=== PATIENT | female | born 1990 | race Caucasian/White ===

== ENCOUNTER 2016-08-31 06:35 | Emergency (ER) | payer SELFPAY ==
[2016-08-31 08:27] LABS: Hematocrit 41 % (35-47); Hemoglobin 14.4 g/dl (12.0-16.0); Mean Corpuscular HGB Conc 35 g/dl (31-36); Mean Corpuscular Hemoglobin 32 pg (27-31); Mean Corpuscular Volume 91 fL (80-97); Mean Platelet Volume 9 um3 (7.4-10.4); Red Blood Count 4.47 10^6/ul (4.0-5.4); Red Cell Distribution Width 12 % (10.5-15)
[2016-08-31 08:36] LABS: ALT 26 U/L (7-52); AST 28 U/L (13-39); Albumin 4.6 g/dL (3.2-5.2); Alkaline Phosphatase 71 U/L (34-104); Anion Gap 5 mmol/L (2-11); BUN/Creatinine Ratio 25.5 (8-20); Blood Urea Nitrogen 13 mg/dL (6-24); C Reactive Protein 2.11 mg/L (< 5.00); CO2 Carbon Dioxide 24 mmol/L (22-32); Calcium 9.6 mg/dL (8.6-10.3); Chloride 107 mmol/L (101-111); EGFR African American 184.7 (>60); EGFR Non-African American 143.6 (>60); Globulin 2.6 g/dL (2-4); Glucose 100 mg/dL (70-100); Potassium 3.4 mmol/L (3.5-5.0); Sodium 136 mmol/L (133-145); Total Protein 7.2 g/dL (6.4-8.9)
[2016-08-31 09:13] LABS: TSH (Thyroid Stimulating Horm) 5.92 mcIU/mL (0.34-5.60)
[2016-08-31 10:19] VITALS: BP 119/80
--- NOTE | 2016-08-31 10:24 | ED ---
Izzy Villalobos Thomas, scribed for Scotty Ochoa MD on 08/31/16 at 0717 . Complex/Multi-Sys Presentation - HPI Summary HPI Summary: Pt is a 26 y/o F presenting to the ED c/o SOB that began an hour ago (06:15). Her SOB lasted 20 minutes but has since resolved. Additionally c/o "R arm shaking", R arm parasthesias, R arm weakness, near syncope, decreased hearing, and "trouble moving face". Her Sx emerged suddenly and they have since improved. She notes that she occasionally has a "wave of not feeling good", but the severity of this is less than onset of Sx. Denies rashes, nausea, pedal edema. She recently flew from [place]. She is on levothyroxin. - History Of Current Complaint Chief Complaint: EDWeakness Time Seen by Provider: 08/31/16 07:13 Hx Obtained From: Patient Onset/Duration: Sudden Onset - this AM, Resolved Severity Currently: None Associated Signs And Symptoms: Positive: Syncope - near, SOB - resolved, Other - POS: parasthesias, "R arm shaking", R arm weakness, decreased hearing, "trouble moving face. NEG: rash. Negative: Edema - pedal, Nausea - Allergies/Home Medications Allergies/Adverse Reactions: Allergies Allergy/AdvReac Type Severity Reaction Status Date / Time No Known Allergies Allergy Verified 08/31/16 07:07 Home Medications: Home Medications Levothyroxine TAB* [Synthroid TAB*] 125 mcg PO 0800 08/31/16 [History Confirmed 08/31/16] PMH/Surg Hx/FS Hx/Imm Hx Previously Healthy: No Endocrine/Hematology History: Reports: Hx Thyroid Disease - hypothyroidism Infectious Disease History: No Infectious Disease History: Denies: Traveled Outside the [place] in Last 30 Days - Social History Alcohol Use: Weekly Substance Use Type: Reports: None Smoking Status (MU): Never Smoked Tobacco Review of Systems Constitutional: Negative Eyes: Negative ENT: Other - POS: "decreased hearing" Cardiovascular: Negative Positive: Shortness Of Breath - lasted 20 minutes, resolved Gastrointestinal: Negative Negative: Nausea Genitourinary: Negative Musculoskeletal: Negative Negative: Edema Skin: Negative Negative: Rash Neurological: Other - POS: "right arm shaking"; R arm weakness; "trouble moving face" Positive: Paresthesia - R arm, Syncope - near Psychological: Normal All Other Systems Reviewed And Are Negative: Yes Physical Exam Triage Information Reviewed: Yes Vital Signs On Initial Exam: Initial Vitals Temp Pulse Resp BP Pulse Ox 98.0 F 81 16 148/92 100 08/31/16 06:45 08/31/16 06:45 08/31/16 06:45 08/31/16 06:45 08/31/16 06:45 Vital Signs Reviewed: Yes Appearance: Positive: Well-Appearing, No Pain Distress Skin: Positive: Warm, Skin Color Reflects Adequate Perfusion, Dry, Other - POS: scratch on R leg and a small red area on R heel Head/Face: Positive: Normal Head/Face Inspection Eyes: Positive: Normal ENT: Positive: Normal ENT inspection Neck: Positive: Supple, Nontender Respiratory/Lung Sounds: Positive: Clear to Auscultation, Breath Sounds Present , Decreased Breath Sounds - lungs a little diminished on R side Cardiovascular: Positive: RRR Abdomen Description: Positive: Nontender, Soft Bowel Sounds: Positive: Present Musculoskeletal: Positive: Normal Neurological: Positive: Normal, Sensory/Motor Intact, Alert, Oriented to Person Place, Time, CN Intact II-III Psychiatric: Positive: Normal, Affect/Mood Appropriate - Terry Coma Scale Coma Scale Total: 15 Diagnostics - Vital Signs Vital Signs Temp Pulse Resp BP Pulse Ox 08/31/16 07:00 71 140/87 99 08/31/16 06:58 70 99 08/31/16 06:56 137/89 08/31/16 06:45 98.0 F 81 16 148/92 100 - Laboratory Lab Results: Lab Results 08/31/16 08/31/16 08/31/16 Range/Units 08:11 08:11 08:11 WBC 7.0 (3.5-10.8) 10^3/ul RBC 4.47 (4.0-5.4) 10^6/ul Hgb 14.4 (12.0-16.0) g/dl Hct 41 (35-47) % MCV 91 (80-97) fL MCH 32 H (27-31) pg MCHC 35 (31-36) g/dl RDW 12 (10.5-15) % Plt Count 248 (150-450) 10^3/ul MPV 9 (7.4-10.4) um3 Neut % (Auto) 57.5 (38-83) % Lymph % (Auto) 29.1 (25-47) % [place] % (Auto) 10.6 H (1-9) % Eos % (Auto) 2.1 (0-6) % Baso % (Auto) 0.7 (0-2) % Absolute Neuts (auto) 4.0 (1.5-7.7) 10^3/ul Absolute Lymphs (auto) 2.0 (1.0-4.8) 10^3/ul Absolute Monos (auto) 0.7 (0-0.8) 10^3/ul Absolute Eos (auto) 0.1 (0-0.6) 10^3/ul Absolute Basos (auto) 0.1 (0-0.2) 10^3/ul Absolute Nucleated RBC 0 10^3/ul Nucleated RBC % 0.1 D-Dimer, Quantitative < 200 (Less Than 230) ng/mL Sodium 136 (133-145) mmol/L Potassium 3.4 L (3.5-5.0) mmol/L Chloride 107 (101-111) mmol/L Carbon Dioxide 24 (22-32) mmol/L Anion Gap 5 (2-11) mmol/L BUN 13 (6-24) mg/dL Creatinine 0.51 (0.51-0.95) mg/dL Est GFR ( Amer) 184.7 (>60) Est GFR (Non-Af Amer) 143.6 (>60) BUN/Creatinine Ratio 25.5 H (8-20) Glucose 100 (70-100) mg/dL Calcium 9.6 (8.6-10.3) mg/dL Total Bilirubin 0.70 (0.2-1.0) mg/dL AST 28 (13-39) U/L ALT 26 (7-52) U/L Alkaline Phosphatase 71 (34-104) U/L C-Reactive Protein 2.11 (< 5.00) mg/L Total Protein 7.2 (6.4-8.9) g/dL Albumin 4.6 (3.2-5.2) g/dL Globulin 2.6 (2-4) g/dL Albumin/Globulin Ratio 1.8 (1-3) TSH 5.92 H (0.34-5.60) mcIU/mL Beta HCG, Quant < 0.60 mIU/mL Result Diagrams: 08/31/16 08:11 08/31/16 08:11 Lab Statement: Any lab studies that have been ordered have been reviewed, and results considered in the medical decision making process. Complex Multi-Symp Course/Dx Course Of Treatment: The source of Ms. Antunez's symptoms is uncertain. She had a sudden episode of feeliing faint, SOB and feeling like her right arm was very itchy. It lasted less than 30 minutes and was essentially gone when she got here although she reported having waves of "not feeling good". Those went away also and she continued to be stable here with normal vitals. Her W/U here was negative and I recommended F/U if any symptoms recur. - Diagnoses Provider Diagnoses: Near syncope Discharge - Discharge Plan Condition: Stable Disposition: HOME Patient Education Materials: Near Syncope (ED) Referrals: [facility]FERR[facility] [Outside] - 3 Days The documentation as recorded by the Izzy cshilling Thomas accurately reflects the service I personally performed and the decisions made by me, Scotty Ochoa MD.
== END 2016-08-31 10:22 | disposition home or self-care (01) ==
LOC: ED 06:35
DX: R55 Syncope and collapse (principal); R06.02 Shortness of breath
CPT/HCPCS: 36415; 80053; 84443; 84702; 85025; 85379; 86140; 99282